=== PATIENT | male | born 1995 | race Caucasian/White ===

== ENCOUNTER 2021-05-25 17:34 | Emergency (ER) | payer SELFPAY ==
[2021-05-25 17:43] VITALS: BP 130/84; PULSE 82; RESP 18; TEMP 37.5; O2SAT 99; BMI 30.8
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
--- NOTE | 2021-05-25 18:45 | PC.NURSE ---
cleansed abrasions to bilateral knees with soap and water patted dry and left over to air.
== END 2021-05-25 18:35 | disposition home or self-care (01) ==
PROVIDERS: Emergency Provider Nurse Practitioner Family
DX: S01.112A Laceration without foreign body of left eyelid and periocular area, initial encounter (principal); S80.212A Abrasion, left knee, initial encounter; S80.211A Abrasion, right knee, initial encounter; V29.88XA Motorcycle rider (driver) (passenger) injured in other specified transport accidents, initial encounter
CPT/HCPCS: 12013; 99281

== ENCOUNTER 2022-08-17 15:08 | Outpatient (CLI) | payer OTHER, SELFPAY ==
--- NOTE | 2022-08-17 15:34 | XR_ITS ---
WS: [id number] CHEST 2 VIEWS HISTORY: Chronic cough COMPARISON: 08/20/2007 Lungs: Slight elevation of the RIGHT hemidiaphragm. No pneumonia. No pleural effusion or pneumothorax . Cardiac size: Normal. Mediastinum/Aorta: Normal mediastinum. Bones: Normal. XR/XR chest 2V* [id number] IMPRESSION: Normal chest.
== END 2022-08-17 15:09 | disposition home or self-care (01) ==
LOC: RAD 15:23
PROVIDERS: PCP Family Medicine; Visit Provider Family Medicine
DX: R05.3 Chronic cough (principal)
CPT/HCPCS: 71046; 80053; 80061; 84443; 85025

== ENCOUNTER 2025-02-06 18:32 | Emergency (ER) | payer SELFPAY ==
[2025-02-06 18:50] VITALS: BP 184/84; PULSE 148; TEMP 36.6; O2SAT 97; BMI 33.0
--- NOTE | 2025-02-06 21:04 | ECG_ITS ---
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
--- NOTE | 2025-02-06 22:25 | ED_ITS ---
HPI - Nausea/Vomiting/Diarrhea 2 General: Chief complaint: Nausea/Vomiting/Diarrhea Stated complaint: Ate some Brownies anxiety Time Seen by Provider: 02/06/25 20:45 Source: patient and family (sister) Mode of arrival: wheelchair Limitations: altered mental status (patient is asleep) History of Present Illness: Patient is a 29-year-old male who presents today with nausea, vomiting, anxiety following ingestion of a weed brownie. Patient states he felt fine prior to this. He states the edible came from a licensed dispensary. He is not sure on the milligram strength of the edible. He states he does not often use marijuana. Denies any other drug use. Upon arrival patient is lying with his eyes closed on the bed. He is able to answer all orientation questions appropriately. He appears anxious. He is mildly hypertensive (systolic was 140s) and tachycardic. He does not complain of pain anywhere. MD elicited complaint: nausea and vomiting Onset (ago): hour(s) Associated nausea: Yes Associated abdominal pain: No Location of pain: None Relieving factors: none Context: marijuana use Associated symtoms: Reports anxiety and nausea; Denies change in vision, chest pain, headache(s) or palpitations Related Data Previous Rx's ?Medication ?Instructions ?Recorded albuterol sulfate 90 mcg/actuation 1 inh inhalation QI D PRN shortness 03/20/23 aerosol inhaler of breath or wheezing #8.5 g laureen montelukast 10 mg tablet 10 mg PO DAILY #30 tabs 03/06 03/28 (Singulair) Allergies Allergy/AdvReac Type Severity Reaction Status Date / Time No Known Allergies Allergy Verified 02/06/25 19:04 Review of Systems 2 Const: Denies: fever(s), chills or body aches Eyes: Denies: change in vision or blurry vision Card: Denies: chest pain or palpitations Resp: Denies: dyspnea GI: Reports: nausea and vomiting; Denies: abdominal pain or diarrhea Neuro: Reports: other ( whole body felt numb ); Denies: headache(s) Psych: Reports: anxiety PFSH ED 2 PFSH: Family History Mother Cancer Bone Father Healthy adult male Social History (Reviewed 02/06/25 @ 23:57 by TSERING Dueñas Smoking and tobacco/nicotine status: never used tobacco/nicotine Alcohol intake: never Substance/Drug Use: never Adopted: No Caregiver/support person: No Lives independently: Yes Housing: House Marital status: Single Highest education level completed: High School Graduate Current occupational status: employed 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 Somewhat tremulous. He keeps his eyes closed during history taking. He is able to tell me his name, date of , current location, address, etc. HENMT: COMMON NORMALS: normocephalic and atraumatic HEAD & SCALP: normal to inspection, normocephalic and atraumatic FACE & SINUS: normal facial exam Eye: COMMON NORMALS: Equal, round and reactive pupils present and EOMs intact bilaterally GENERAL EYE: appearance normal, both eyes and all related structures and normal light reflex PUPIL: Yes Equal, round and reactive pupils present DIRECT OPHTHALMOSCOPY: Yes normal light reflex Neck/C-Spine: COMMON NORMALS: no lymphadenopathy Resp: COMMON NORMALS: normal respiratory effort, No retractions and clear to auscultation bilaterally AUSCULTATION: clear to auscultation bilaterally Cardio: COMMON NORMALS: regular rhythm RATE: tachycardic RHYTHM: regular rhythm GI: COMMON NORMALS: Normal to inspection, nondistended, normoactive bowel sounds present, Soft to palpation, non-tender, No hepatosplenomegaly present and no masses PALPATION: Yes Soft to palpation and Yes No hepatosplenomegaly present Extremity: GENERAL: Yes normal exam except as noted Neuro: JOSE G COMA SCALE: document GCS findings Jose G coma scale eye opening: Spontaneous Jose G coma scale verbal response: Orientated [place] coma scale motor response: Obey commands Jose G coma scale total score: 15 COMMON NORMALS: moves all extremities, no focal motor deficits and no sensory deficits noted; negative for patient oriented x3 SENSORIUM/ORIENTATION: No alert, Yes oriented to person, Yes oriented to place, Yes oriented to time and Yes somnolent Course 2 Vital Signs: Vital signs: Vital Signs Temperature 97.9 F 02/06/25 18:50 Pulse Rate 106 H 02/06/25 23:40 Blood Pressure 114/67 02/06/25 23:40 Pulse Oximetry 90 02/06/25 23:40 Oxygen Delivery Me thod Room Air 02/06/25 18:50 MDM - Nausea/Vomiting/Diarrhea Medical Decision Making Patient is a 29-year-old male here for nausea, vomiting, severe anxiety, altered mental status following ingestion of a THC brownie. Prior to ingestion, patient states he felt fine. Symptoms started approximately 30 to 45 minutes following ingestion. Actual milligram amount of THC ingested unknown but states he only took 2 bites. He is not a habitual marijuana user. Family states that he violently vomited for several hours following ingestion. He has not had any vomiting while here. Patient initially arrived to the emergency department tachycardic and hypertensive. These have resolved after IV Ativan and fluids. He was also given antiemetics. Blood work showing a white count of 21,000. This most likely is secondary to him vomiting for the last few hours. Based on his history, I do not have any concern for infection. Remainder of labs unremarkable. Family feels comfortable taking him home. Return precautions discussed. Medical Records I reviewed the patient's medical records. Lab Data I reviewed the patient's lab results. 02/06/25 22:30 02/06/25 22:30 Laboratory Results WBC 21.02 10^3/uL (3.29-11.43) H 02/06/25 22:30 RBC 5.41 10^6/uL (3.85-5.65) 02/06/25 22:30 Hgb 15.90 g/dL (11.27-16.99) 02/06/25 22:30 Hct 47.1 % (37-53) 02/06/25 22:30 MCV 87.1 fl (82-101) 02/06/25 22:30 MCH 29.4 pg (27-33) 02/06/25 22: MCHC 33.8 g/dL (30-55) 02/06/25 22:30 RDW 12.6 % (12.1-15.1) 02/06/25 22:30 Plt Count 255 10^3/cmm (157-399) 02/06/25: MPV 10.9 fL (7.4-10.4) H 02/06/25 22:30 Neut % (Auto) 87.8 % 02/06/25 22: Lymph % (Auto) 5.5 % 02/06/25 22: [place] % (Auto) 6.0 % 02/06/25 22: Eos % (Auto) 0.0 % 02/06/25 22: Baso % (Auto) 0.1 % 02/06/25: Neut # (Auto) 18.44 10^3/uL (1.8-7.7) H 02/06/25: Lymph # (Auto) 1.2 10^3/uL (0.8-4.8) 02/06/25: [place] # (Auto) 1.3 10^3/uL (0.2-0.9) H 02/06/25: Eos # (Auto) 0.0 10^3/uL (0.0-0.8) 02/06/25: Baso # (Auto) 0.0 10^3/uL (0.0-0.1) 02/06/25: Nucleated RBC % (auto) 0 % 02/06/25: Nucleated RBCs # 0.0 /100WBC 02/06/25 22: Sodium 138 mmol/L (136-145) 02/06/25 22: Potassium 4.2 mmol/L (3.5-5.1) 02/06/25: Chloride 104 mmol/L (98-107) 02/06/25: Carbon Dioxide 22 mmol/L (22-29) 02/06/25: Anion Gap 16.2 (5-19) 02/06/25: BUN 20 mg/dL (6-20) 02/06/25: Creatinine 1.0 mg/dL (0.7-1.2) 02/06/25 22: GFR Calculation 89.0 mL/min (90-130) L 02/06/25: Glucose 125 mg/dL (65-115) H 02/06/25 22:30 Calculated Osmolality 290 mOsm/kg (285-295) 02/06/25 22:30 Calcium 9.6 mg/dL (8.5-10.5) 02/06/25 22:30 Total Bilirubin 0.3 mg/dL (0.15-1.2) 02/06/25 22:30 AST 17 U/L (0-40) 02/06/25 22:30 ALT 22 U/L (0-41) 02/06/25 22:30 Alkaline Phosphatase 75 U/L (40-130) 02/06/25 22:30 Total Protein 7.8 g/dL (6.6-8.7) 02/06/25 22:30 Albumin 4.6 g/dL (3.5-5.2) 02/06/25 22:30 Globulin 3.2 g/dL (1.3-4.6) 02/06/25 22:30 No radiology studies performed this visit Discharge Plan Discharge Patient Disposition: Home Clinical Impression: Accidental marijuana overdose Qualifiers: Encounter type: initial encounter Qualified Code(s): T40.711A - Poisoning by cannabis, accidental (unintentional), initial encounter Condition: Stable Prescriptions: No Action montelukast [Singulair] 10 mg tablet 10 mg PO DAILY Qty: 30 2RF albuterol sulfate 90 mcg/actuation HFA aerosol inhaler 1 inh inhalation QID PRN (Reason: shortness of breath or wheezing) Qty: 8.5 2RF Discharge Orders: Discharge ED (Routine); Ordered 02/07/25 Ordered By: Juani Woods Referrals: Bin Kim DO [Primary Care Provider] - Activity Restrictions/Additional Instructions: Push fluids (water) as much as possible over the next 24 hours. Symptoms should improve with time. Patient may return to the emergency department for worsening altered mental status, chest pain, shortness of breath, difficulty breathing, continued vomiting, fevers, generally feeling worse or unwell, or any other concerns you may have. Print Language: Singaporean Coding Level of Care Code ED Broadcast Field Supervisor for Vanessa Cho
[2025-02-06 22:35] VITALS: BP 145/91; PULSE 137; O2SAT 96
[2025-02-06 22:35] LABS: Basophils % 0.1 %; Hematocrit 47.1 % (37-53); Lymphocytes # 1.2 10^3/uL (0.8-4.8); Lymphocytes % 5.5 %; Mean Corpuscular HGB Conc 33.8 g/dL (30-55); Mean Corpuscular Hemoglobin 29.4 pg (27-33); Mean Corpuscular Volume 87.1 fl (82-101); Mean Platelet Volume 10.9 fL (7.4-10.4); Monocytes # 1.3 10^3/uL (0.2-0.9); Neutrophils # 18.44 10^3/uL (1.8-7.7); Neutrophils % 87.8 %; Nucleated Red Blood Cells % 0 %; Platelet Count 255 10^3/cmm (157-399); Red Blood Count 5.41 10^6/uL (3.85-5.65); Red Cell Distribution Width 12.6 % (12.1-15.1); White Blood Count 21.02 10^3/uL (3.29-11.43)
[2025-02-06] MEDS: ondansetron 2 mg/ML SDV 2 mL 4 MG IVP (22:48)
[2025-02-06] MEDS: LORazepam 2 mg/mL INJ 1 mL 1 MG IVP (22:48)
[2025-02-06] MEDS: sodium chloride 0.9% 1,000 ML 999 ML IV (22:49)
[2025-02-06 22:59] LABS: Alanine Aminotransferase 22 U/L (0-41); Albumin Level 4.6 g/dL (3.5-5.2); Alkaline Phosphatase 75 U/L (40-130); Anion Gap 16.2 (5-19); Aspartate Amino Transferase 17 U/L (0-40); Blood Urea Nitrogen 20 mg/dL (6-20); Calcium 9.6 mg/dL (8.5-10.5); Carbon Dioxide 22 mmol/L (22-29); Chloride 104 mmol/L (98-107); Creatinine Clr Calc Pharmacy 133.0473; Globulin 3.2 g/dL (1.3-4.6); Glucose 125 mg/dL (65-115); Osmolality Calculated 290 mOsm/kg (285-295); Potassium 4.2 mmol/L (3.5-5.1); Sodium 138 mmol/L (136-145); Total Bilirubin 0.3 mg/dL (0.15-1.2); Total Protein 7.8 g/dL (6.6-8.7)
[2025-02-06 23:40] VITALS: BP 114/67; PULSE 106; O2SAT 90
[2025-02-07 00:20] VITALS: BP 140/87; PULSE 111; O2SAT 94
[2025-02-07 00:34] LABS: Amphetamines Screen Urine Negative (Negative); Barbiturates Screen Urine Negative (Negative); Benzodiazepines Screen Urine Negative (Negative); Cocaine Screen Urine Negative (Negative); Opiate Screen Urine Negative (Negative); PCP Screen Urine Negative (Negative); THC Screen Urine Positive (Negative)
== END 2025-02-07 00:22 | disposition home or self-care (01) ==
PROVIDERS: Emergency Provider Physician Assistant; PCP Family Medicine
DX: T40.711A Poisoning by cannabis, accidental (unintentional), initial encounter (principal); F12.90 Cannabis use, unspecified, uncomplicated; X58.XXXA Exposure to other specified factors, initial encounter
CPT/HCPCS: 80053; 80306; 85025; 93005; 96361; 96374; 96375; 99284; J2060; J2405; J7030

== ENCOUNTER 2025-05-13 09:55 | Emergency (ER) | payer SELFPAY ==
[2025-05-13 09:56] VITALS: BP 132/79; PULSE 82; TEMP 36.9; O2SAT 100
--- OUTSIDE RECORDS SUMMARY | 2025-05-13 10:11 | XMS_ITS | Continuity of Care Document ---
Author Organization SY [facility] Shalonda Cervantes, [facility] ([facility]) Address [address] [place] [id number] Assessment No assessment recorded. Plan of Treatment Reminders Order Date Submit Date Provider Last Modified By Organization Details Last Modified Time Details Appointments OFFICE VISIT 2024 02:40P Bradley LEVY PA-C Not available Not available Not available OFFICE VISIT 2024 11:40A Bradley LEVY PA-C Not available Not available Not available Lab glucose, fingerst ick, blood 2024 07 025 [email or web address] [facility] ([facility]), [address] [place], [address], 05/12/2025 12:02:38 Referral None recorded . Procedures None recorded . Surgeries None recorded . Imaging None recorded . Medication Orders None recorded . Patient TargetsNo targets recorded. Patient InstructionsNo instructions recorded. Reason for Referral None Reported. Results Created Date Observation Date Name Description Value Unit Range Abnormal Flag Note LastModifiedBy Organization Detail LastModifiedTime 05/12/2005/12/2025 gluco se, finge rstic k, blood Blood Glucose: mg/dl 100 Not Available [facility] ( [facility]) [address] [place], [address], 05/12/2025 12:01:46 Result Notes None recorded. Medical Equipment None Reported. Allergies No known drug allergies Vitals Date Recorded Body height Body mass index (BMI) Body weight Respiratory rate Oxygen saturation Oxygen saturation in Arterial blood by Pulse oximetry Heart rate Body temperature Systolic And Diastolic Systolic And Diastolic Systolic And Diastolic Systolic And Diastolic Provider Name and Address Organization Details Last Updated DateTime 177.8 cm 32.5 kg/m2 441018. 68 g 16 /min 98 % 98 % 76 /min 98.6 [degF] 138/88 mm[Hg] 140/84 mm[Hg] 160/90 mm[Hg] 150/84 mm[Hg] CHARAN NANCE [facility] 12:01:19 Social History Question Answer Notes LastModified by Organizat ion Details LastModified Time Tobacco Smoking Status Never Smoker CHARAN whipple [facility] 05/12/2025 11:33:34 What Was The Date Of Your Most Recent Tobacco Screening? 05/12/2025 [email or web address] Information not available 05/12/2025 Sex: Unknown Functional Status None recorded. Mental Status None recorded. Family History Nothing Reported. Medical History No medical history recorded. Immunizations Vaccine Type Date Status Note Provider Nam e and Address Organization Details Recorded Time DTaP 6 completed Not Available [facility] 05/12/2025 11:22:02 Hep B, unspecified formulation 6 completed Not Available [facility] 05/12/2025 11:22:02 polio, unspecified formulation 6 completed Not Available [facility] 05/12/2025 11:22:02 Hep B, unspecified formulation 7 completed Not Available [facility] 05/12/2025 11:22:02 DTaP 7 completed Not Available [facility] 05/12/2025 11:22:02 polio, unspecified formulation 7 completed Not Available [facility] 05/12/2025 11:22:02 Hep B, unspecified formulation 7 completed Not Available [facility] 05/12/2025 11:22:02 DTaP 7 completed Not Available [facility] 05/12/2025 11:22:02 polio, unspecified formulation 7 completed Not Available [facility] 05/12/2025 11:22:02 varicella 06/11/199 8 completed Not Available [facility] 05/12/2025 11:22:02 DTaP 9 completed Not Available [facility] 05/12/2025 11:22:02 MMR 9 completed Not Available [facility] 05/12/2025 11:22:02 DTaP 1 completed Not Available [facility] 05/12/2025 11:22:02 polio, unspecified formulation 1 completed Not Available [facility] 05/12/2025 11:22:02 MMR 1 completed Not Available [facility] 05/12/2025 11:22:02 Tdap 1 completed Not Available [facility] 05/12/2025 11:22:02 Past Encounters Encounter ID Performer Location Encounter Start Date Encounter Closed Date Diagnosis/Indication Diagnosis SNOMED-CT Code Diagnosis ICD10 Code Diagnosis Note [id number] MERCEDES GABRIEL [facility] ([facility]) [address] [place] [phone] 05/12/2025 11:20:49 05/12/2025 21:39:29 Dizziness 173632460 R42 Elevated blood-pressure reading without diagnosis of hypertension 064199641 R03.0 Patient to monitor BP x BID and keep log. Avoid caffeine and lower salt intake. Advised to schedule with PCP available for follow up. RTC with any new or worsening symptoms. Health Concerns Section Related Observation LastModified by Organization Detai ls LastModified Time None Recorded Concern Status LastModified by Organization Details LastModified Time None Recorded Payers Encounter Date Sequence Insurance Name Policy Number Policy Lyn Covered Member ID Lyn Member ID Guarantor Name 05/12/2025 1 *SELF PAY* Zana Cervantes Notes Date Note Type Note Provider Name and Address Organization Details Recorded Time 05/12/2025 text/html walk-in; no PCP Patient states over the last week, he's feel off, like something wasn't right . He bought a blood pressure monitor and was checking his BP but it was all normal. No log available for review. Today, he felt fine when he woke up but as the morning went on, he felt off. Patient states that he has a known history of occasional elevated BP but does not take medication. CHRISTIANO LEON, NATURAL GAS BASIS TRADER [address] [place], [address], [facility], Shalonda 05/12/2025 21:39:28
--- OUTSIDE RECORDS SUMMARY | 2025-05-13 10:11 | XMS_ITS | Data Portability ---
Author Organization SY [facility] [place], [facility] Address [address] [facility] [facility] [address] [place] [address] Assessment No assessment recorded. Plan of Treatment Reminders Order Date Submit Date Provider Last Modified By Organization Details Last Modified Time Details Appointments OFFICE VISIT 2024 02:40P Bradley LEVY PA-C Not available Not available Not available OFFICE VISIT 2024 11:40A Bradley LEVY PA-C Not available Not available Not available Lab glucose, fingerst ick, blood 2024 07 025 [email or web address] [facility] ([facility]), [address] [place], [address], 05/12/2025 12:02:38 Referral None recorded . Procedures [...] blood Blood Glucose: mg/dl 100 Not Available [facility] ( [facility]) [address] [place], [address], 05/12/2025 12:01:46 Result Notes None recorded. Medical [...] Last Updated DateTime 177.8 cm 32.5 kg/m2 933385. 68 g 16 /min 98 % 98 % 76 /min 98.6 [degF] 138/88 mm[Hg] 140/84 mm[Hg] 160/90 mm[Hg] 150/84 mm[Hg] CHARAN NANCE [facility], [facility]ance 12:01:19 Social History Question Answer Notes LastModified by Organizat ion Details LastModified Time Tobacco Smoking Status Never Smoker CHARAN whipple [facility], [facility]ance 05/12/2025 11:33:34 What Was The Date Of Your Most Recent Tobacco Screening? 05/12/2025 [email or web address] Information not available 05/12/2025 Sex: Unknown Functional Status None recorded. Mental Status None recorded. Family History Nothing Reported. Medical History No medical history recorded. Immunizations Vaccine Type Date Status Note Provider Nam e and Address Organization Details Recorded Time DTaP 6 completed Not Available [facility] 05/12/2025 11:22:02 Hep B, unspecified formulation 6 completed Not Available [facility] 05/12/2025 11:22:02 polio, unspecified formulation 6 completed Not Available [facility] 05/12/2025 11:22:02 Hep B, unspecified formulation 7 completed Not Available [facility] 05/12/2025 11:22:02 DTaP 7 completed Not Available [facility] 05/12/2025 11:22:02 polio, unspecified formulation 7 completed Not Available [facility] 05/12/2025 11:22:02 Hep B, unspecified formulation 7 completed Not Available [facility] 05/12/2025 11:22:02 DTaP 7 completed Not Available [facility] 05/12/2025 11:22:02 polio, unspecified formulation 7 completed Not Available [facility] 05/12/2025 11:22:02 varicella 8 completed Not Available [facility] 05/12/2025 11:22:02 DTaP 9 completed Not Available [facility] 05/12/2025 11:22:02 MMR 9 completed Not Available [facility] 05/12/2025 11:22:02 DTaP 1 completed Not Available [facility] 05/12/2025 11:22:02 polio, unspecified formulation 1 completed Not Available [facility] 05/12/2025 11:22:02 MMR 1 completed Not Available [facility] 05/12/2025 11:22:02 Tdap 1 completed Not Available [facility] 05/12/2025 11:22:02 Past Encounters Encounter ID Performer Location Encounter Start Date Encounter Closed Date Diagnosis/Indication Diagnosis SNOMED-CT Code Diagnosis ICD10 Code Diagnosis Note [id number] [facility] ([facility]) [address] [place] [id number] 05/12/2025 11:20:49 05/12/2025 21:39:29 Dizziness [id number] R42 Elevated blood-pressure reading without diagnosis of hypertension 260840896 R03.0 Patient to monitor BP x BID and keep log. Avoid caffeine and lower salt intake. Advised to schedule with PCP available for follow up. RTC with any new or worsening symptoms. Health Concerns Section Related Observation LastModified by Organization Detai ls LastModified Time None Recorded Concern Status LastModified by Organization Details LastModified Time None Recorded Advance Directives Directive None Recorded Payers Insurance Date Sequence Insurance Name Policy Number Policy [...] but does not take medication. CHRISTIANO LEON, SUPPLIER ENGINEER [address] [place], [address], [facility] - [facility], [place] 05/12/2025 21:39:28
--- NOTE | 2025-05-13 10:21 | ECG_ITS ---
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 Measurements Intervals [place] Rate: 82 P: 35 AK: 128 QRS: 42 QRSD: 97 T: 17 QT: 334 QTc: 391 Interpretive Statements SINUS RHYTHM WITH SINUS ARRHYTHMIA INTERPRETATION BASED ON A DEFAULT AGE OF 40 YEARS Compared to ECG 02/06/2025 19:09:09 Sinus tachycardia no longer present T-wave abnormality no longer present Electronically Signed On 05-13-2025 17:20:25 CDT by Michelle Castro M.D. [email or web address]
--- NOTE | 2025-05-13 10:21 | XR_ITS ---
WS: [id number] Exam: XR chest 1V portable [id number] Date/Time of Exam: 05/13/2025 10:21 AM Reason For Exam: chest pain Comparison 08/17/2022. Lungs are clear. Normal cardiomediastinal silhouette and regional bony elements. No pleural effusions. XR/XR chest 1V portable [id number] IMPRESSION: 1. Normal chest.
--- NOTE | 2025-05-13 10:34 | W.ED.GENADLT ---
HPI - General Adult General: Chief complaint: Shortness of Breath/Dyspnea Stated complaint: chest pain Time Seen by Provider: 05/13/25 10:25 Source: patient Mode of arrival: ambulatory Limitations: no limitations History of Present Illness: Patient is a 30-year-old male comes to ED today with multiple complaints. Patient states over the past month or so he has felt fatigued. He feels like he tires easily. He is reporting chronic shortness of breath stating he feels like he gets winded easily-he feels like this has been going on for years. He reports trouble losing weight. He states intermittently he will have full body numbness . This morning he had an episode of chest pain underneath his left breast. He is no longer having pain at time of my examination. He was reportedly seen at the [facility] walk-in clinic yesterday. He was set up with a primary care appointment with Kaley Crowell PA-C on . Onset (ago): day(s) Severity: mild Relieving factors: none Exacerbating factors: none Associated symptoms: Reports chest pain (resolved now); Deny headache(s), malaise, nausea, rash, palpitations, syncope or vomiting Treatments prior to arrival: none Related Data Home Medications ?Medication ?Instructions ?Recorded ?Confirmed cyanocobalamin (B12)-cobamamide 1 javon sublingual DAILY 05/13/25 05/13/25 5,000 mcg-100 mcg sublingual lozenge (B12) ibuprofen 200 mg tablet (Advil) 400 mg PO Q6H PRN Fever Or Pain 05/13/25 05/13/25 Allergies Allergy/AdvReac Type Severity Reaction Status Date / Time No Known Allergies Allergy Verified 05/13/25 10:04 Review of Systems Const: Denies: fever(s), chills, body aches, fatigue or malaise Eyes: Denies: change in vision or blurry vision ENMT: Denies: throat pain Card: Reports: chest pain (resolved now) and dyspnea on exertion (chronic); Denies: palpitations, irregular heart rhythm, edema, swelling of feet/ankles, lightheadedness, syncope, pre-syncope, orthopnea, leg pain with exertion or acrocyanosis Resp: Denies: productive cough, non-productive cough, wheezing, stridor, pain on inspiration or chest congestion GI: Denies: abdominal pain, nausea, vomiting, heartburn or diarrhea : Denies: flank pain, difficulty urinating or dysuria Musc: Denies: neck pain, back pain, extremity pain, extremity swelling or joint pain Skin/Breast: Denies: rash Neuro: Denies: headache(s), numbness in extremities, weakness in extremities or sensory changes PFSH ED PFSH: Family History Mother Cancer Bone Father Healthy adult male Social History Smoking and tobacco/nicotine status: never used tobacco/nicotine Alcohol intake: never Substance/Drug Use: never Adopted: No Caregiver/support person: No Lives independently: Yes Housing: House Marital status: Single Highest education level completed: High School Graduate Current occupational status: employed 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 Current occupational exposures/hazards: No Pets and animals: Yes Sexually active: No Do you think of yourself as: Straight/Heterosexual Current gender identity: Male Special siena needs: No Agree to transfusion: Yes Physical Exam Const: COMMON NORMALS: no acute distress, patient oriented x3, no limitations, alert and well nourished GENERAL APPEARANCE: cooperative NUTRITIONAL APPEARANCE: overweight ORIENTATION/CONSCIOUSNESS: Yes awake, Yes oriented to person, Yes oriented to place and Yes oriented to time HENMT: COMMON NORMALS: normocephalic and atraumatic HEAD & SCALP: normal to inspection, normocephalic and atraumatic Eye: COMMON NORMALS: no scleral icterus Neck/C-Spine: COMMON NORMALS: full ROM, no lymphadenopathy, supple and no meningeal signs Chest: COMMONS NORMALS: normal inspection of the chest and normal palpation of entire chest wall Resp: COMMON NORMALS: normal respiratory effort and clear to auscultation bilaterally AUSCULTATION: clear to auscultation bilaterally Cardio: COMMON NORMALS: regular rate and regular rhythm RATE: regular rate RHYTHM: regular rhythm GI: COMMON NORMALS: Normal to inspection, nondistended, normoactive bowel sounds present, Soft to palpation, non-tender, No hepatosplenomegaly present and no masses PALPATION: Yes Soft to palpation and Yes No hepatosplenomegaly present : COMMON NORMALS: Yes no CVA tenderness BLADDER/KIDNEY EXAM: Yes no CVA tenderness Back/Pelvis: COMMON NORMALS: no CVA tenderness and thoracic and lumbar spine normal to inspection Extremity: COMMON NORMALS: normal to inspection, no clubbing, cyanosis or edema, no calf tenderness and no pedal edema GENERAL: Yes normal exam except as noted Neuro: COMMON NORMALS: patient oriented x3, moves all extremities, no focal motor deficits, no sensory deficits noted and gait normal SENSORIUM/ORIENTATION: Yes alert, Yes oriented to person, Yes oriented to place and Yes oriented to time MENINGEAL SIGNS: Yes no meningeal signs Skin: COMMON NORMALS: no rashes or lesions noted GENERAL SKIN EXAM: no rashes or lesions noted Course Vital Signs: Vital signs: Vital Signs Temperature 98.4 F 05/13/25 09:56 Pulse Rate 82 05/13/25 09:56 Blood Pressure 132/79 05/13/25 09:56 Pulse Oximetry 100 05/13/25 09:56 Oxygen Delivery Me thod Room Air 05/13/25 09:56 MDM - General Adult Medical Decision Making Patient clinically appears in no acute distress. His vital signs are stable. Blood work including CBC, CMP, TSH, BNP and D-dimer are all unremarkable. His CXR is normal. EKG is nonischemic. Patient has follow-up with primary care on . Recommend he keep this appointment. Medical Records I reviewed the patient's medical records. Lab Data I reviewed the patient's lab results. 05/13/25 10:42 05/13/25 10:42 Radiology Impressions Chest X-Ray 05/13/25 10:21 IMPRESSION: 1. Normal chest. Laboratory Results WBC 6.38 10^3/uL (3.29-11.43) 05/13/25 10:42 RBC 5.60 10^6/uL (3.85-5.65) 05/13/25 10:42 Hgb 16.50 g/dL (11.27-16.99) 05/13/25 10:42 Hct 49.5 % (37-53) 05/13/25 10:42 MCV 88.4 fl (82-101) 05/13/25 10:42 MCH 29.5 pg (27-33) 05/13/25 10:42 MCHC 33.3 g/dL (30-55) 05/13/25 10:42 RDW 12.4 % (12.1-15.1) 05/13/25 10:42 Plt Count 255 10^3/cmm (157-399) 05/13/25 10:42 MPV 10.9 fL (7.4-10.4) H 05/13/25 10:42 Neut % (Auto) 76.1 % 05/13/25 10:42 Lymph % (Auto) 15.0 % 05/13/25 10:42 [place] % (Auto) 7.8 % 05/13/25 10:42 Eos % (Auto) 0.6 % 05/13/25 10:42 Baso % (Auto) 0.3 % 05/13/25 10:42 Neut # (Auto) 4.85 10^3/uL (1.8-7.7) 05/13/25 10:42 Lymph # (Auto) 1.0 10^3/uL (0.8-4.8) 05/13/25 10:42 [place] # (Auto) 0.5 10^3/uL (0.2-0.9) 05/13/25 10:42 Eos # (Auto) 0.0 10^3/uL (0.0-0.8) 05/13/25 10:42 Baso # (Auto) 0.0 10^3/uL (0.0-0.1) 05/13/25 10:42 Nucleated RBC % (auto) 0 % 05/13/25 10:42 Nucleated RBCs # 0.0 /100WBC 05/13/25 10:42 D-Dimer <= 0.27 ug/mLFEU (0-0.59) 05/13/25 10:42 Sodium 135 mmol/L (136-145) L 05/13/25 10:42 Potassium 4.2 mmol/L (3.5-5.1) 05/13/25 10:42 Chloride 101 mmol/L (98-107) 05/13/25 10:42 Carbon Dioxide 23 mmol/L (22-29) 05/13/25 10:42 Anion Gap 15.2 (5-19) 05/13/25 10:42 BUN 9 mg/dL (6-20) 05/13/25 10:42 Creatinine 0.9 mg/dL (0.7-1.2) 05/13/25 10:42 GFR Calculation 99.8 mL/min (90-130) 05/13/25 10:42 Glucose 106 mg/dL (65-115) 05/13/25 10:42 Calculated Osmolality 279 mOsm/kg (285-295) L 05/13/25 10:42 Calcium 9.4 mg/dL (8.5-10.5) 05/13/25 10:42 Total Bilirubin 0.5 mg/dL (0.15-1.2) 05/13/25 10:42 AST 15 U/L (0-40) 05/13/25 10:42 ALT 19 U/L (0-41) 05/13/25 10:42 Alkaline Phosphatase 80 U/L (40-130) 05/13/25 10:42 NT-Pro-B Natriuret Pep < 36 pg/mL (0-125) 05/13/25 10:42 Total Protein 7.6 g/dL (6.6-8.7) 05/13/25 10:42 Albumin 4.4 g/dL (3.5-5.2) 05/13/25 10:42 Globulin 3.2 g/dL (1.3-4.6) 05/13/25 10:42 TSH 2.12 uIU/mL (0.27-4.20) 05/13/25 10:42 All radiology interpretation(s) finalized by discharge Discharge Plan Discharge Patient Disposition: Home Clinical Impression: Dyspnea on exertion Fatigue Qualifiers: Fatigue type: unspecified Qualified Code(s): R53.83 - Other fatigue Condition: Stable Prescriptions: No Action ibuprofen [Advil] 200 mg Tablet 400 mg PO Q6H PRN (Reason: Fever Or Pain) B12 5,000-100 mcg Lozenge 1 javon SUBLINGUAL DAILY Discharge Orders: Discharge ED (Routine); Ordered 05/13/25 Ordered By: Juani Woods Referrals: Kaley Crowell PA [Primary Care Provider, Physicians Vice President Of Development] Patient Instructions: Patient Portal & Rebeka Instructions Print Language: Turkish Coding Level of Care Code ED [facility] for Vanessa Cho
[2025-05-13 10:55] LABS: Hematocrit 49.5 % (37-53); Hemoglobin 16.50 g/dL (11.27-16.99); Mean Corpuscular HGB Conc 33.3 g/dL (30-55); Mean Corpuscular Hemoglobin 29.5 pg (27-33); Mean Corpuscular Volume 88.4 fl (82-101); Nucleated Red Blood Cells % 0 %; Platelet Count 255 10^3/cmm (157-399); Red Blood Count 5.60 10^6/uL (3.85-5.65); White Blood Count 6.38 10^3/uL (3.29-11.43)
[2025-05-13 11:25] LABS: Alanine Aminotransferase 19 U/L (0-41); Albumin Level 4.4 g/dL (3.5-5.2); Alkaline Phosphatase 80 U/L (40-130); Anion Gap 15.2 (5-19); Aspartate Amino Transferase 15 U/L (0-40); Blood Urea Nitrogen 9 mg/dL (6-20); Calcium 9.4 mg/dL (8.5-10.5); Carbon Dioxide 23 mmol/L (22-29); Chloride 101 mmol/L (98-107); Creatinine Clr Calc Pharmacy 145.5779; Globulin 3.2 g/dL (1.3-4.6); Glucose 106 mg/dL (65-115); NT Pro B Type Natriuretic Pept < 36 pg/mL (0-125); Osmolality Calculated 279 mOsm/kg (285-295); Potassium 4.2 mmol/L (3.5-5.1); Sodium 135 mmol/L (136-145); Thyroid Stimulating Hormone 2.12 uIU/mL (0.27-4.20); Total Protein 7.6 g/dL (6.6-8.7)
[2025-05-13 11:45] VITALS: BP 130/76; PULSE 74; O2SAT 95
== END 2025-05-13 11:46 | disposition home or self-care (01) ==
PROVIDERS: Emergency Provider Physician Assistant; PCP Physician Assistant
DX: R06.09 Other forms of dyspnea (principal); R53.83 Other fatigue
CPT/HCPCS: 36415; 71045; 80053; 83880; 84443; 85025; 85378; 93005; 99285

== ENCOUNTER 2025-08-27 10:16 | Outpatient (CLI) | payer OTHER, MEDICAID, SELFPAY ==
[2025-08-27 12:05] LABS: Hematocrit 50.0 % (37-53); Hemoglobin 16.30 g/dL (11.27-16.99); Mean Corpuscular HGB Conc 32.6 g/dL (30-55); Mean Corpuscular Hemoglobin 28.8 pg (27-33); Mean Corpuscular Volume 88.5 fl (82-101); Nucleated Red Blood Cells % 0 %; Platelet Count 249 10^3/cmm (157-399); Red Blood Count 5.65 10^6/uL (3.85-5.65); White Blood Count 6.07 10^3/uL (3.29-11.43)
[2025-08-27 12:38] LABS: Alanine Aminotransferase 16 U/L (0-41); Albumin Level 4.9 g/dL (3.5-5.2); Alkaline Phosphatase 100 U/L (40-130); Anion Gap 16.8 (5-19); Aspartate Amino Transferase 13 U/L (0-40); Blood Urea Nitrogen 8 mg/dL (6-20); Calcium 9.8 mg/dL (8.5-10.5); Carbon Dioxide 25 mmol/L (22-29); Chloride 102 mmol/L (98-107); Free T4 Free Thyroxine 1.17 ng/dL (0.82-1.77); Globulin 2.9 g/dL (1.3-4.6); Glucose 80 mg/dL (65-115); Osmolality Calculated 287 mOsm/kg (285-295); Potassium 3.8 mmol/L (3.5-5.1); Sodium 140 mmol/L (136-145); Thyroid Stimulating Hormone 2.88 uIU/mL (0.27-4.20); Total Protein 7.8 g/dL (6.6-8.7)
== END 2025-08-27 10:17 | disposition home or self-care (01) ==
LOC: LAB 10:18
PROVIDERS: PCP Family Medicine; Visit Provider Family Medicine
DX: F41.0 Panic disorder [episodic paroxysmal anxiety] (principal); R44.3 Hallucinations, unspecified; R07.9 Chest pain, unspecified; H53.2 Diplopia; R41.0 Disorientation, unspecified; R20.0 Anesthesia of skin; R25.1 Tremor, unspecified; R42 Dizziness and giddiness; R61 Generalized hyperhidrosis; G47.8 Other sleep disorders; F12.959 Cannabis use, unspecified with psychotic disorder, unspecified; E03.9 Hypothyroidism, unspecified
CPT/HCPCS: 36415; 80053; 82175; 83655; 83825; 83835; 84439; 84443; 84480; 85025

== ENCOUNTER 2025-08-27 19:56 | Outpatient (CLI) | payer SELFPAY | END 2025-08-27 19:57 | disposition home or self-care (01) | LOC: SLEEP 19:57 | PROVIDERS: PCP Physician Assistant; Referring Provider Physician Assistant; Visit Provider Internal Medicine Pulmonary Disease | DX: R40.0 Somnolence (principal); R06.83 Snoring | CPT/HCPCS: 95810 ==